=== PATIENT | male | born 1970 | race Caucasian/White ===

== ENCOUNTER 2017-07-04 13:58 | Emergency (ER) | payer MEDICAID ==
[2017-07-04] MEDS: ONDANSETRON (ODT) 4 MG TAB ODT (16:34)
[2017-07-04] MEDS: morphine 4 MG/ML VIAL IM (16:35)
== END 2017-07-04 19:10 | disposition home or self-care (01) ==
LOC: FTE 13:58
DX: M25.512 Pain in left shoulder (principal); M25.522 Pain in left elbow; M25.552 Pain in left hip; M25.562 Pain in left knee; M54.9 Dorsalgia, unspecified; E11.9 Type 2 diabetes mellitus without complications
CPT/HCPCS: 72100; 73030; 73080-LT; 73510; 73562; 93005; 96372; 99284-25

== ENCOUNTER 2018-09-10 20:14 | Inpatient (IN) | payer OTHER, MEDICAID ==
[2018-09-10] MEDS: SOD CHLORIDE 0.9% 1,000 ML IV (22:25)
[2018-09-10 22:32] LABS: ADD MAN DIFF? NO
[2018-09-10 22:41] LABS: ADD UMIC YES; BASOPHILS % 0.2 % (0.0-2.0); EOSINOPHILS % 0.1 % (0.0-7.0); HEMATOCRIT 39.7 % (42.0-52.0); HEMOGLOBIN 13.3 g/dl (14.0-18.0); LYMPHOCYTES # 0.8 10^3/ul (0.8-2.9); MEAN CORPUSCULAR HEMOGLOBIN 29.4 pg (29.0-33.0); MEAN CORPUSCULAR HGB CONC 33.5 g/dl (32.0-37.0); MEAN CORPUSCULAR VOLUME 87.8 fl (82.0-101.0); MONOCYTE # 1.2 10^3/ul (0.3-0.9); MONOCYTES % 7.4 % (0.0-11.0); NEUTROPHIL # 14.2 10^3/ul (1.6-7.5); NEUTROPHILS % 86.6 % (39.0-77.0); PLATELET COUNT 143 10^3/UL (140-415); RED BLOOD COUNT 4.52 10^6/ul (4.70-6.10); RED CELL DISTRIBUTION WIDTH 13.4 % (11.5-14.5); UR ASCORBIC ACID NEGATIVE (NEGATIVE); UR BILIRUBIN (Dip) NEGATIVE (NEGATIVE); UR BLOOD (Dip) NEGATIVE (NEGATIVE); UR CLARITY SLIGHTLY CLOUDY (CLEAR); UR COLOR YELLOW (YELLOW); UR GLUCOSE (Dip) 3+ mg/dL (NEGATIVE); UR KETONES (Dip) 1+ mg/dL (NEGATIVE); UR LEUKOCYTE ESTERASE (Dip) NEGATIVE Leu/ul (NEGATIVE); UR NITRITE (Dip) NEGATIVE (NEGATIVE); UR RBC 0 /HPF (0-5); UR SPECIFIC GRAVITY (Dip) 1.012 (1.003-1.030); UR TOTAL PROTEIN (Dip) 1+ mg/dl (NEGATIVE); UR UROBILINOGEN (Dip) NEGATIVE (NEGATIVE); UR WBC 1 /HPF (0-5)
[2018-09-10 22:41] LABS: WHITE BLOOD COUNT 16.4 10^3/ul (4.8-10.8)
[2018-09-10 23:14] LABS: ANION GAP 9 (5-13); BLOOD UREA NITROGEN 8 mg/dl (7-20); CALCIUM 9.2 mg/dl (8.4-10.2); CARBON DIOXIDE 31 mmol/L (21-31); CHLORIDE 97 mmol/L (97-110); CREATININE 0.78 mg/dl (0.61-1.24); Estimated GFR > 60 mL/min (>60); GLUCOSE 264 mg/dl (70-220); POTASSIUM 3.9 mmol/L (3.5-5.1); SODIUM 137 mmol/L (135-144)
[2018-09-11] MEDS: CEFEPIME 1GM/50 ML (PMX) 50 ML IVPB (03:09)
[2018-09-11] MEDS: CIPROFLOXACIN 400MG/D5W 200 ML IVPB (03:09)
[2018-09-11] MEDS ORDERED: ONDANSETRON 4 MG INJ IV ×2 (03:30→05:00)
[2018-09-11] MEDS ORDERED: ACETAMINOPHEN 325 MG TAB PO ×2 (03:30→05:00)
[2018-09-11] MEDS ORDERED: NACL 0.9% 3 ML SYG IV (05:00)
[2018-09-11] MEDS ORDERED: hydrALAzine 20 MG INJ IV (05:00)
[2018-09-11] MEDS ORDERED: NITROGLYCERIN (SL) 0.4 MG TAB SL (05:00)
[2018-09-11] MEDS ORDERED: ALBUTEROL/IPRATROPIUM (NEB) 3 ML AMP HHN (05:00)
[2018-09-11] MEDS ORDERED: DOCUSATE SODIUM 100 MG CAP PO (05:00)
[2018-09-11] MEDS ORDERED: MAGNESIUM HYDROXIDE 30ML CUP PO (05:00)
[2018-09-11] MEDS: HYDROCODONE/APAP (5/325) TAB PO ×3 (05:21→22:28)
[2018-09-11] MEDS: SOD CHLORIDE 0.45% 1,000 ML IV (05:27)
[2018-09-11] MEDS ORDERED: GLUCAGON 1 MG INJ IM (06:00)
[2018-09-11] MEDS ORDERED: GLUCOSE GEL 15 GRAM TUBE PO ×2 (06:00)
[2018-09-11] MEDS ORDERED: GLUCOSE GEL 15 GRAM TUBE BUCCAL (06:00)
[2018-09-11] MEDS ORDERED: DEXTROSE 50% 50 ML SYRINGE IV ×2 (06:00)
[2018-09-11 07:19] LABS: FREE T4 (FREE THYROXINE) 1.02 ng/dl (0.64-1.79)
[2018-09-11] MEDS ORDERED: LEVOFLOXACIN 750MG/D5W (PMX) 150 ML IVPB (09:00)
[2018-09-11] MEDS: CEFEPIME 2GM/50 ML (PMX) 50 ML IVPB ×2 (09:13→20:21)
[2018-09-11] MEDS: NICOTINE (14 MG/24 HR) PATCH TRANSDERM (09:13)
[2018-09-11] MEDS: HEPARIN 5,000 UNIT/1 ML VIAL SC ×2 (09:15→20:22)
[2018-09-11] MEDS: INSULIN ASPART [NOVOLOG] 3 ML PEN SC ×6 (09:15→20:23)
[2018-09-11] MEDS: traMADol 50 MG TAB PO (10:18)
[2018-09-11] MEDS: ALBUTEROL/IPRATROPIUM (NEB) 3 ML AMP HHN ×2 (12:04→21:00)
[2018-09-11] MEDS: BUDESONIDE (NEB) 0.5MG/2ML AMP HHN ×2 (12:14→21:00)
[2018-09-11] MEDS ORDERED: INSULIN GLARGINE [LANTus] (100 UNITS/ML) SYG SC (20:00)
[2018-09-11] MEDS: morphine 2 MG INJ IV (20:40)
[2018-09-11] MEDS: INSULIN GLARGINE [LANTus] (100 UNITS/ML) SYG SC (20:42)
[2018-09-12] MEDS: morphine 2 MG INJ IV ×4 (01:55→21:12)
[2018-09-12] MEDS: ACCU-CHEK XX (02:00)
[2018-09-12] MEDS: LORAZEPAM 2 MG INJ IV (02:44)
[2018-09-12] MEDS: HYDROCODONE/APAP (5/325) TAB PO ×3 (04:27→18:55)
[2018-09-12 05:37] LABS: ADD MAN DIFF? NO
[2018-09-12 05:44] LABS: WHITE BLOOD COUNT 10.2 10^3/ul (4.8-10.8)
[2018-09-12 05:45] LABS: BASOPHIL # 0.1 10^3/ul (0.0-0.1); BASOPHILS % 0.5 % (0.0-2.0); EOSINOPHILS # 0.4 10^3/ul (0.0-0.5); EOSINOPHILS % 3.6 % (0.0-7.0); HEMATOCRIT 35.7 % (42.0-52.0); LYMPHOCYTES % 19.2 % (15.0-51.0); MEAN CORPUSCULAR HEMOGLOBIN 29.3 pg (29.0-33.0); MEAN CORPUSCULAR HGB CONC 33.6 g/dl (32.0-37.0); MEAN CORPUSCULAR VOLUME 87.1 fl (82.0-101.0); MEAN PLATELET VOLUME 12.4 fl (7.4-10.4); MONOCYTE # 0.8 10^3/ul (0.3-0.9); MONOCYTES % 8.3 % (0.0-11.0); NEUTROPHIL # 6.9 10^3/ul (1.6-7.5); PLATELET COUNT 125 10^3/UL (140-415); RED CELL DISTRIBUTION WIDTH 13.2 % (11.5-14.5)
[2018-09-12 05:53] LABS: ALANINE AMINOTRANSFERASE 18 IU/L (13-69); ALBUMIN 3.1 g/dl (3.3-4.9); ALKALINE PHOSPHATASE 80 IU/L (42-121); ASPARTATE AMINO TRANSFERASE 11 IU/L (15-46); BILIRUBIN,INDIRECT 0.7 mg/dl (0-1.1); BILIRUBIN,TOTAL 0.7 mg/dl (0.2-1.3)
[2018-09-12 05:59] LABS: ANION GAP 6 (5-13); BLOOD UREA NITROGEN 9 mg/dl (7-20); CALCIUM 8.6 mg/dl (8.4-10.2); CARBON DIOXIDE 28 mmol/L (21-31); CHLORIDE 105 mmol/L (97-110); CHOL/HDL RATIO 2.8 RATIO; CHOLESTEROL 119 mg/dl (100-200); CREATININE 0.71 mg/dl (0.61-1.24); Estimated GFR > 60 mL/min (>60); GLUCOSE 241 mg/dl (70-220); HDL CHOLESTEROL 42 mg/dl (28-71); LDL CHOLESTEROL,CALCULATED 53 mg/dl; MAGNESIUM 1.9 mg/dl (1.7-2.5); PHOSPHORUS 2.3 mg/dl (2.5-4.9); POTASSIUM 3.4 mmol/L (3.5-5.1); SODIUM 139 mmol/L (135-144); TRIGLYCERIDES 120 mg/dl (0-149)
[2018-09-12 06:26] LABS: THYROID STIMULATING HORMONE 0.584 MIU/L (0.465-4.680)
[2018-09-12] MEDS: INSULIN ASPART [NOVOLOG] 3 ML PEN SC ×7 (08:03→20:57)
[2018-09-12] MEDS: ALBUTEROL/IPRATROPIUM (NEB) 3 ML AMP HHN ×2 (08:42→13:50)
[2018-09-12] MEDS: BUDESONIDE (NEB) 0.5MG/2ML AMP HHN (08:42)
[2018-09-12] MEDS: CEFEPIME 2GM/50 ML (PMX) 50 ML IVPB (09:32)
[2018-09-12] MEDS: POTASSIUM CHLORIDE 20 MEQ POWDER FOR ORAL SOLN PO (09:33)
[2018-09-12] MEDS: NICOTINE (14 MG/24 HR) PATCH TRANSDERM (09:33)
[2018-09-12] MEDS: HEPARIN 5,000 UNIT/1 ML VIAL SC ×2 (09:37→20:58)
[2018-09-12] MEDS: LEVOFLOXACIN 750 MG TABLET PO (12:50)
[2018-09-12] MEDS: FLUTICASONE/VILANTEROL 100-25 INH ×2 (14:00→17:43)
[2018-09-12] MEDS: TIOTROPIUM 18 MCG CAPSULE INHA DEV INH ×2 (14:00→17:43)
[2018-09-12] MEDS: ZOLPIDEM 5 MG TAB PO (20:54)
[2018-09-12] MEDS: INSULIN GLARGINE [LANTus] (100 UNITS/ML) SYG SC (20:56)
[2018-09-12] MEDS: DIPHENHYDRAMINE 25 MG CAP PO (23:42)
[2018-09-13] MEDS: LORAZEPAM 2 MG INJ IV (00:41)
[2018-09-13] MEDS: HYDROCODONE/APAP (5/325) TAB PO ×3 (01:18→12:37)
[2018-09-13] MEDS: morphine 2 MG INJ IV ×3 (01:18→09:30)
[2018-09-13] MEDS: ACCU-CHEK XX (02:04)
[2018-09-13] MEDS: LEVOFLOXACIN 750 MG TABLET PO (04:51)
[2018-09-13 05:42] LABS: ADD MAN DIFF? NO
[2018-09-13 05:50] LABS: BASOPHIL # 0.1 10^3/ul (0.0-0.1); BASOPHILS % 0.5 % (0.0-2.0); EOSINOPHILS # 0.5 10^3/ul (0.0-0.5); EOSINOPHILS % 4.5 % (0.0-7.0); HEMATOCRIT 39.5 % (42.0-52.0); HEMOGLOBIN 13.4 g/dl (14.0-18.0); LYMPHOCYTES # 2.3 10^3/ul (0.8-2.9); LYMPHOCYTES % 20.5 % (15.0-51.0); MEAN CORPUSCULAR HEMOGLOBIN 29.3 pg (29.0-33.0); MEAN CORPUSCULAR HGB CONC 33.9 g/dl (32.0-37.0); MEAN CORPUSCULAR VOLUME 86.2 fl (82.0-101.0); MEAN PLATELET VOLUME 12.9 fl (7.4-10.4); MONOCYTE # 0.9 10^3/ul (0.3-0.9); MONOCYTES % 8.1 % (0.0-11.0); NEUTROPHIL # 7.2 10^3/ul (1.6-7.5); NEUTROPHILS % 65.8 % (39.0-77.0); PLATELET COUNT 169 10^3/UL (140-415); RED BLOOD COUNT 4.58 10^6/ul (4.70-6.10)
[2018-09-13 06:33] LABS: ANION GAP 9 (5-13); BLOOD UREA NITROGEN 11 mg/dl (7-20); CALCIUM 9.4 mg/dl (8.4-10.2); CARBON DIOXIDE 26 mmol/L (21-31); CHLORIDE 106 mmol/L (97-110); CREATININE 0.72 mg/dl (0.61-1.24); Estimated GFR > 60 mL/min (>60); GLUCOSE 161 mg/dl (70-220); POTASSIUM 3.7 mmol/L (3.5-5.1); SODIUM 141 mmol/L (135-144)
[2018-09-13 06:52] LABS: PHOSPHORUS 3.2 mg/dl (2.5-4.9)
[2018-09-13] MEDS: INSULIN ASPART [NOVOLOG] 3 ML PEN SC ×4 (08:01→12:31)
[2018-09-13] MEDS: NICOTINE (14 MG/24 HR) PATCH TRANSDERM (09:01)
[2018-09-13] MEDS: FLUTICASONE/VILANTEROL 100-25 INH (09:01)
[2018-09-13] MEDS: TIOTROPIUM 18 MCG CAPSULE INHA DEV INH (09:02)
[2018-09-13] MEDS: HEPARIN 5,000 UNIT/1 ML VIAL SC (09:04)
== END 2018-09-13 14:25 | disposition home or self-care (01) | DRG 194 ==
LOC: FTE 20:14 → PP2 09-11 03:30
PROVIDERS: Hospitalist
DX: J18.0 Bronchopneumonia, unspecified organism (principal); Q62.0 Congenital hydronephrosis; E11.9 Type 2 diabetes mellitus without complications; Z59.0 Homelessness; F17.200 Nicotine dependence, unspecified, uncomplicated
CPT/HCPCS: 36415; 71046; 74176; 80048; 80061; 80076; 81001; 82962; 83036; 83735; 84100; 84439; 84443; 85025; 87040-91; 94640; 94664; 96361; 96365; 96368; 97161; 99285-25